=== PATIENT | female | born 1965 | race Asian ===

== ENCOUNTER 2018-04-20 23:28 | Emergency (ER) | payer BC ==
[~2018-04-20] VITALS: Ht 162.6 cm; Wt 62.6 kg
[2018-04-20 23:30] VITALS: Ht 162.6 cm; Wt 62.6 kg
[2018-04-21 01:54] VITALS: BP 91/69
== END 2018-04-21 01:54 | disposition home or self-care (01) ==
LOC: ED 23:28
DX: T39.011A Poisoning by aspirin, accidental (unintentional), initial encounter (principal); T78.3XXA Angioneurotic edema, initial encounter; G43.909 Migraine, unspecified, not intractable, without status migrainosus; Z88.6 Allergy status to analgesic agent; Y92.89 Other specified places as the place of occurrence of the external cause
CPT/HCPCS: J0171; J2930; Q0163